=== PATIENT | female | born 1970 | race Caucasian/White ===

== ENCOUNTER 2018-04-11 12:01 | Inpatient (IN) ==
[2018-04-11 13:11] LABS: BILIRUBIN URINE NEGATIVE (NEGATIVE); BLOOD URINE TRACE (NEGATIVE); CLARITY CLEAR (CLEAR); COLOR YELLOW; GLUCOSE URINE NEGATIVE (NEGATIVE); KETONE URINE NEGATIVE (NEGATIVE); LEUKOCYTES URINE NEGATIVE (NEGATIVE); NITRITE URINE NEGATIVE (NEGATIVE); PROTEIN URINE 1+(30 mg/dL) mg/dL (NEGATIVE); SP GRAVITY URINE 1.005; UROBILINOGEN URINE NORMAL
--- NOTE | 2018-04-11 13:20 | Diag Imaging Result Doc PS360 ---
EXAM: CT HEAD W/O CONTRAST 04/11/2018 HISTORY: head injury, hallucinations TECHNIQUE: This exam was performed using automated exposure control, adjustment of mA or kV according to patient size, and/or use of iterative reconstruction technique. COMMENT: There is no evidence of mass effect, bleed, or abnormal extra-axial fluid collection. There are air-fluid levels in both maxillary sinuses. This was not the case at the time the previous study of 06/01/2017. The calvarium is intact. There is no evidence of acute bony abnormality. IMPRESSION: Bilateral maxillary sinusitis. No evidence of acute intracranial disease. Electronically signed by Marques Padron 04/11/2018 1:17 PM
[2018-04-11 13:33] LABS: UR AMPHETAMINES QUAL PRESUMPTIVE POSITIVE (NONE DETECT); UR BARBITUATES QUAL NONE DETECTED (NONE DETECT); UR BENZODIAZEPIN QUAL PRESUMPTIVE POSITIVE (NONE DETECT); UR CANNABINOIDS QUAL NONE DETECTED (NONE DETECT); UR COCAINE QUAL NONE DETECTED (NONE DETECT); UR METHADONE QUAL NONE DETECTED (NONE DETECT); UR METHAMPHETAMINE QUAL NONE DETECTED (NONE DETECT); UR OPIATES QUAL PRESUMPTIVE POSITIVE (NONE DETECT); UR OXYCODONE QUAL NONE DETECTED (NONE DETECT); UR PCP QUAL NONE DETECTED (NONE DETECT); UR PROPOXYPHENE QUAL NONE DETECTED (NONE DETECT); UR TCA QUAL NONE DETECTED (NONE DETECT)
[2018-04-11 13:35] LABS: BASO# 0.01 X1000 (0.0-0.2); BASO% 0.1 % (0.0-0.8); EOS# 0.01 X1000 (0.0-0.7); EOS% 0.1 % (0.0-10.0); HEMATOCRIT 33.7 % (37.0-47.0); HEMOGLOBIN 12.5 g/dL (12.0-16.0); IMM GRAN# 0.06 X1000 (0.0-0.04); IMM GRAN% 0.5 % (0.0-0.5); LYMPH# 1.21 X1000 (1.2-3.4); LYMPH% 9.3 % (20.5-51.1); MCH 30.4 PG (27-31); MCHC 37.1 g/dL (33-37); MONO# 1.05 X1000 (0.11-0.59); MONO% 8.1 % (1.7-9.3); MPV 10.9 FL (7.4-10.4); NEUT# 10.65 X1000 (1.4-6.5); NEUT% 81.9 % (42.2-75.2); PLT 320 X1000 (130-400); RBC 4.11 XMIL (4.2-5.4); WBC 12.99 X1000 (4.8-10.8)
[2018-04-11 13:38] LABS: URINE EPITHELIAL CELLS >10 /HPF (<10); URINE RBC <10 /HPF (<10); URINE WBC <10 /HPF (<10); URINE YEAST PRESENT /HPF
[2018-04-11 13:39] LABS: URINE SOURCE CLEAN CATCH
[2018-04-11 13:45] LABS: ESTIMATED GFR > 60
[2018-04-11 13:53] LABS: AGAP 13; ALBUMIN 3.9 g/dL (3.5-5.0); ALKALINE PHOSPHATASE 143 U/L (32-104); BUN 8 mg/dL (8-22); CALCIUM 9.3 mg/dL (8.8-10.2); CHLORIDE 84 mmol/L (98-107); COSMO 240; CREATININE 0.7 mg/dL (0.5-0.9); GLUCOSE 121 mg/dL (70-104); GOT 21 U/L (10-30); GPT 12 U/L (10-36); POTASSIUM 3.9 mmol/L (3.5-5.1); SODIUM 119 mmol/L (136-145); TCO2 23 mmol/L (25-35); TOTAL PROTEIN 7.3 g/dL (6.3-8.3)
[2018-04-11] MEDS ORDERED: NS 1,000 ML IV ONE ×2 (14:10→15:27)
[2018-04-11 14:21] LABS: FREE T4 1.67 ng/dL (0.93-1.70); TSH 0.28 uIUmL (0.27-4.20)
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
[2018-04-11] MEDS ORDERED: ZOFRAN IV PRN (15:27)
[2018-04-11] MEDS ORDERED: TYLENOL PO PRN (15:27)
--- NOTE | 2018-04-11 16:28 | Diag Imaging Result Doc PS360 ---
EXAM: CHEST-PORTABLE - 04/11/2018 HISTORY: chest pain TECHNIQUE: Portable chest COMPARISON: 06/01/2017 FINDINGS: Allowing for the AP projection, heart size appears within normal limits. Inspiration is somewhat shallow. There is mild curvilinear scarring at the right upper lobe which appears stable. There is slight prominence of interstitial markings but these may be exaggerated by the shallow inspiration. There is no dense consolidation, pleural effusion, or pneumothorax identified. IMPRESSION: Somewhat shallow inspiration. Nonspecific slight prominence of interstitial markings. Electronically signed by Sander Velazco 04/11/2018 4:26 PM
[2018-04-11] MEDS ORDERED: ZOFRAN ODT PO PRN (16:45)
[2018-04-11] MEDS ORDERED: NORCO-10 PO SCH (17:00)
[2018-04-11] MEDS ORDERED: XANAX PO SCH (17:00)
[2018-04-11] MEDS ORDERED: NUBAIN IV PRN (18:20)
[2018-04-11 20:04] LABS: AGAP 13; BUN 7 mg/dL (8-22); CALCIUM 8.7 mg/dL (8.8-10.2); CHLORIDE 86 mmol/L (98-107); COSMO 242; CREATININE 0.7 mg/dL (0.5-0.9); ESTIMATED GFR > 60; GLUCOSE 101 mg/dL (70-104); POTASSIUM 3.2 mmol/L (3.5-5.1); SODIUM 121 mmol/L (136-145); TCO2 23 mmol/L (25-35)
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
[2018-04-11] MEDS ORDERED: VALIUM PO SCH (21:00)
[2018-04-11] MEDS: NEURONTIN PO SCH (22:42)
[2018-04-11] MEDS: VALIUM PO SCH (22:42)
[2018-04-12 03:00] LABS: AGAP 13; BUN 7 mg/dL (8-22); CALCIUM 8.7 mg/dL (8.8-10.2); CHLORIDE 90 mmol/L (98-107); COSMO 248; CREATININE 0.7 mg/dL (0.5-0.9); ESTIMATED GFR > 60; GLUCOSE 112 mg/dL (70-104); POTASSIUM 3.7 mmol/L (3.5-5.1); SODIUM 124 mmol/L (136-145); TCO2 21 mmol/L (25-35)
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
[2018-04-12 06:47] LABS: BASO# 0.01 X1000 (0.0-0.2); BASO% 0.1 % (0.0-0.8); EOS# 0.04 X1000 (0.0-0.7); EOS% 0.4 % (0.0-10.0); HEMATOCRIT 29.6 % (37.0-47.0); HEMOGLOBIN 10.4 g/dL (12.0-16.0); IMM GRAN# 0.03 X1000 (0.0-0.04); IMM GRAN% 0.3 % (0.0-0.5); LYMPH% 18.5 % (20.5-51.1); MCH 29.5 PG (27-31); MCHC 35.1 g/dL (33-37); MCV 84.1 FL (81-99); MONO# 1.02 X1000 (0.11-0.59); MONO% 11.1 % (1.7-9.3); MPV 10.3 FL (7.4-10.4); NEUT# 6.37 X1000 (1.4-6.5); NEUT% 69.6 % (42.2-75.2); PLT 283 X1000 (130-400); RBC 3.52 XMIL (4.2-5.4); RDW 11.2 % (11.5-14.5); WBC 9.17 X1000 (4.8-10.8)
[2018-04-12 06:59] LABS: AGAP 10; BUN 7 mg/dL (8-22); CALCIUM 8.7 mg/dL (8.8-10.2); CHLORIDE 94 mmol/L (98-107); COSMO 250; CREATININE 0.6 mg/dL (0.5-0.9); ESTIMATED GFR > 60; GLUCOSE 111 mg/dL (70-104); POTASSIUM 3.5 mmol/L (3.5-5.1); SODIUM 125 mmol/L (136-145); TCO2 22 mmol/L (25-35)
[2018-04-12] MEDS ORDERED: PROZAC PO SCH (09:00)
[2018-04-12] MEDS ORDERED: NS 1,000 ML IV SCH (10:00)
[2018-04-12] MEDS: MOBIC PO SCH (11:06)
[2018-04-12] MEDS: ESTRACE PO SCH (11:06)
[2018-04-12] MEDS: NEURONTIN PO SCH ×2 (11:06→20:24)
[2018-04-12] MEDS: KLOR-CON PO SCH (11:06)
--- NOTE | 2018-04-12 11:49 | PROGRESS NOTE ---
DATE: 04/12/2018 SUBJECTIVE: This patient is completely alert and oriented x3. Family members at the bedside. Her sodium increased from 119 to 125. I will continue with the IV fluids. Her urine specific gravity was around 1.005. Also, her urine toxicology showed opiates, amphetamine, and benzodiazepine, but she denies any drug abuse. OBJECTIVE: Vital Signs: Temperature 98 degrees, pulse 80, respiratory rate 20 , blood pressure 144/94, oxygen saturation 98% on room air. HEENT: Head is normocephalic, no trauma. PERRLA. Neck: Supple. No JVD. No masses. Central trachea. Chest: Clear to auscultation. No wheezing. No rales. Abdomen: Soft, nontender, nondistended. No hepatosplenomegaly. Extremities: No edema. No clubbing. No cyanosis. Neurological: The patient is alert and oriented x3. No focal deficits. LABORATORY DATA: WBC 9.1, hemoglobin 10.4, hematocrit 29.6, platelets 283. Sodium 125 potassium 3.5, chloride 94, bicarbonate 22, BUN 7, creatinine 0.6, glucose 111, calcium 8.7. ASSESSMENT AND PLAN: 1. Symptomatic hyponatremia, her mental status has been improving, as per the mother she looks better. Continue with intravenous fluids, but I will probably stop it. I will monitor this again today at noon and then at 6:30 p.m. We will monitor this closely. This is not the first episode of hyponatremia. Actually, she has been admitted before for the same issue. Apparently, also this patient has been drinking only Mountain Dew and not drinking anything else or eating properly, also she has been on hydrochlorothiazide. 2. Hypertension. Continue to monitor. Also, her furosemide and her hydrochlorothiazide have been stopped. Probably also we will hold the Prozac because this also can cause hyponatremia. 3. Hallucination, likely secondary to hyponatremia. 4. Disposition. We will continue to monitor the blood sodium closely. Once this is better, she can be discharged with a strict followup by her primary care doctor and probably nephrology department. cc: Rad Gtz MD MTDD
[2018-04-12 13:01] LABS: AGAP 11; BUN 10 mg/dL (8-22); CALCIUM 8.5 mg/dL (8.8-10.2); CHLORIDE 93 mmol/L (98-107); COSMO 251; CREATININE 0.7 mg/dL (0.5-0.9); ESTIMATED GFR > 60; GLUCOSE 107 mg/dL (70-104); POTASSIUM 3.8 mmol/L (3.5-5.1); SODIUM 125 mmol/L (136-145); TCO2 21 mmol/L (25-35)
[2018-04-12 18:52] LABS: AGAP 10; BUN 10 mg/dL (8-22); CALCIUM 8.5 mg/dL (8.8-10.2); CHLORIDE 95 mmol/L (98-107); COSMO 251; CREATININE 0.7 mg/dL (0.5-0.9); ESTIMATED GFR > 60; GLUCOSE 102 mg/dL (70-104); POTASSIUM 3.8 mmol/L (3.5-5.1); SODIUM 125 mmol/L (136-145); TCO2 21 mmol/L (25-35)
[2018-04-12] MEDS: VALIUM PO SCH (20:24)
[2018-04-13 06:30] LABS: AGAP 12; BUN 10 mg/dL (8-22); CALCIUM 8.7 mg/dL (8.8-10.2); CHLORIDE 102 mmol/L (98-107); COSMO 267; CREATININE 0.7 mg/dL (0.5-0.9); ESTIMATED GFR > 60; GLUCOSE 91 mg/dL (70-104); POTASSIUM 3.7 mmol/L (3.5-5.1); SODIUM 134 mmol/L (136-145); TCO2 21 mmol/L (25-35)
[2018-04-13] MEDS ORDERED: PROZAC PO SCH (09:00)
--- NOTE | 2018-04-13 09:22 | Diag Imaging Result Doc PS360 ---
EXAM: CT HEAD W/O CONTRAST - 04/13/2018 HISTORY: encephalopathy TECHNIQUE: CT head without contrast COMPARISON: 04/11/2018 FINDINGS: There is no evidence of intracranial hemorrhage, mass effect, midline shift, or hydrocephalus. There is no evidence of infarct, although acute infarcts may not be immediately visible. There is a small amount of fluid noted in the bilateral maxillary sinuses. There are mucous retention cysts noted in right maxillary sinus. IMPRESSION: No visible acute intracranial abnormality. There is some paranasal sinus disease noted at the maxillary sinuses. This exam was performed using automated exposure control, adjustment of mA or kV according to patient size, and/or use of iterative reconstruction technique. Electronically signed by Sander Velazco 04/13/2018 9:20 AM
[2018-04-13 10:04] LABS: AGAP 11; BUN 9 mg/dL (8-22); CALCIUM 9.1 mg/dL (8.8-10.2); CHLORIDE 101 mmol/L (98-107); COSMO 268; CREATININE 0.7 mg/dL (0.5-0.9); ESTIMATED GFR > 60; GLUCOSE 117 mg/dL (70-104); POTASSIUM 3.6 mmol/L (3.5-5.1); SODIUM 134 mmol/L (136-145); TCO2 22 mmol/L (25-35)
--- NOTE | 2018-04-13 10:13 | PROGRESS NOTE ---
DATE: 04/13/2018 SUBJECTIVE: Today, she is oriented x3; but, compared with yesterday, she looks a little bit slow. Family members at the bedside, and it looks like she is not fully awake, but she is answering all my questions properly but slow. She is following commands as well. The blood sugar increased from 125 to 134 around 11 hours. She was admitted 2 days ago with severe hyponatremia at 1:19 and is being gradually going up. Initially, she was admitted with 119 like I said, and today it is 134. But she is still having some mental status changes. I am not quite sure if this is because of the hyponatremia or is because of her home medications. We will continue with the diazepam which has been started recently by her doctor. She used to be on Xanax which has been stopped by her doctor and also here and also apparently her doctor has recently stopped her [place] 10. Apparently, she has been more than 1 week without this medication because she ran out of this medication before even getting her refill time. I will consult Neurology to evaluate this patient. 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 Even though the blood sodium is better, she is still having problems I am not quite sure if this has been corrected too fast which I do, because it has been gradually in the past 48 hours do believe also she needs to follow with Nephrology Department as an outpatient since she has been hyponatremic. She has been having problems with hyponatremia since at least 2013. OBJECTIVE: Vital Signs: Temperature 97.6, pulse 78, respiratory rate 20, blood pressure 160/90. Oxygen saturation 100% on room air. HEENT: Head. Normocephalic. No trauma. PERRLA. Neck: Supple. No JVD. No masses. Central trachea. Chest: Clear to auscultation. No wheezing. No rales. Abdomen: Soft, nontender, nondistended. No hepatosplenomegaly. Extremities: No edema. No clubbing. No cyanosis. Neurological: This patient is alert but somnolent. Her answers are slow. She is oriented x3 though. I do not see any focal deficits. LABORATORY: Sodium 134, potassium 3.7, chloride 102, bicarbonate 21. BUN 10, creatinine 0.7, glucose 91. Calcium 8.7. ASSESSMENT AND PLAN: Asymptomatic hyponatremia. Upon admission, her urine sodium was 116 and the urine osmolarity 412, but the specific gravity in the urine was 1005. She received some IV fluids, and the blood sodium increased slowly. She was more alert yesterday but not fully recovered. But, today, she seems to be oriented but still answering my questions really slow but appropriate. She is following commands. She is able to recognize family members at the bedside. I do not see any focal deficits. IMPRESSION: 1. Metabolic encephalopathy. Probably, this is a combination of multiple issues like hyponatremia and medications. Urine toxicology showed opiates, amphetamine, and benzodiazepine. I am not quite sure she is positive for amphetamines though. Recently, I believe last Monday she was evaluated by her primary doctor which did some changes with her medications including stopping her Xanax and put this patient on diazepam. Also, I think they stopped the pain medication, [place]. We already stopped the hydrochlorothiazide because that can cause hyponatremia. Yesterday, I went ahead, and I stopped her Prozac because that medication can cause SIADH and also hyponatremia. I will wait for Neurology Department's and Nephrology Department's recommendations. 2. Hypertension. Continue to monitor. The hydrochlorothiazide has been stopped. Her BUN and creatinine are stable, so I will put her back on her irbesartan and I will monitor. 3. Hallucination, likely a combination of medications and hyponatremia. She is no longer hallucinating. cc: Rad Gtz MD
[2018-04-13] MEDS: ESTRACE PO SCH (10:14)
[2018-04-13] MEDS: KLOR-CON PO SCH (10:14)
[2018-04-13] MEDS: NEURONTIN PO SCH ×2 (10:14→21:21)
[2018-04-13] MEDS: MOBIC PO SCH (10:15)
[2018-04-13] MEDS: AVAPRO PO SCH (10:15)
[2018-04-13 13:25] LABS: AGAP 9; BUN 12 mg/dL (8-22); CALCIUM 8.2 mg/dL (8.8-10.2); CHLORIDE 104 mmol/L (98-107); COSMO 265; CREATININE 0.8 mg/dL (0.5-0.9); ESTIMATED GFR > 60; GLUCOSE 115 mg/dL (70-104); POTASSIUM 3.8 mmol/L (3.5-5.1); SODIUM 132 mmol/L (136-145); TCO2 19 mmol/L (25-35)
[2018-04-13 16:45] LABS: AGAP 8; BUN 14 mg/dL (8-22); CALCIUM 8.5 mg/dL (8.8-10.2); CHLORIDE 100 mmol/L (98-107); COSMO 262; CREATININE 0.8 mg/dL (0.5-0.9); ESTIMATED GFR > 60; GLUCOSE 113 mg/dL (70-104); POTASSIUM 4.3 mmol/L (3.5-5.1); SODIUM 130 mmol/L (136-145); TCO2 22 mmol/L (25-35)
--- NOTE | 2018-04-13 19:32 | CONSULTATION ---
DATE OF CONSULTATION: 04/13/2018 Ms. Darling is 48 years old and she had some recent delusions with hallucination. History from patient and her attentive mother and from review of hospital records is that she has been taking hydrocodone and alprazolam chronically. She has past history of misuse with these medicines. It looks like she filled 30 day supply 03/21/2018 and on approximately 04/05/2018 ( 14 to 15 days later) she had run out of both of these. She began to have some hallucinations and delusions. For example, she thought her was "outside calling me" which was aggravating but not threatening, by her report. She thought she saw some children or heard some children and went to check on them. She understands now that these experiences were not real. She had a single diazepam tablet a few days ago. She has had benzodiazepine provided in the hospital and has not had any further hallucination. She reports no prior similar problems. She has never had diagnosed stroke, definite seizure, serious head injury, other neurologic event. She reports question of seizure in the past evaluated with workup. She has had some limb jerking movements in sleep and she has had sleep study in the past. On presentation here sodium was 119. That has been partially corrected to 134. Other lab work was not remarkable. Noncontrast CT of the head was unremarkable. Urine drug screen was positive for opiates, amphetamine and benzodiazepine. Prior drug screens were positive for opiates and benzodiazepine but negative for amphetamine. On exam Ms. Darling is awake, alert, attentive. She seems appropriate now. Speech is not dysarthric. Language function is intact on bedside testing. Recent and remote memory are good. Head and neck are unremarkable. There is no meningismus. She has full visual fiore tested by confrontational finger counting. Extraocular movements are full. Facial motility is symmetric. Gag is intact. Tongue is midline. She can hear. Shoulder shrug is good bilaterally. Strength is normal in the arms and legs. Proprioception is good at the great toe MTP joint bilaterally. She has good symmetric sensation on gross testing over the limbs. I did not test her gait. IMPRESSION: Transient encephalopathy associated with hallucination and delusions. Features are typical of benzodiazepine withdrawal. We discussed opiate withdrawal symptoms which may have been contributing but generally would not be associated with this type of altered mental state. I encouraged her to be careful with her medicines. We discussed potential for seizure with benzodiazepine withdrawal. If she would like to have followup in [place] to discuss the limb movements in sleep, I will be glad to see her for that. Alternatively, she might follow up with her sleep doctor. No other suggestion from Neurology. Thanks for asking us to see Ms. Darling. cc: MD YAMEL Jhaveri III
[2018-04-13] MEDS ORDERED: VALIUM PO SCH (21:00)
[2018-04-13 21:03] LABS: AGAP 9; BUN 16 mg/dL (8-22); CHLORIDE 102 mmol/L (98-107); COSMO 264; CREATININE 0.7 mg/dL (0.5-0.9); ESTIMATED GFR > 60; GLUCOSE 99 mg/dL (70-104); SODIUM 131 mmol/L (136-145); TCO2 21 mmol/L (25-35)
[2018-04-14 02:32] LABS: AGAP 11; BUN 13 mg/dL (8-22); CALCIUM 8.4 mg/dL (8.8-10.2); CHLORIDE 102 mmol/L (98-107); COSMO 268; CREATININE 0.6 mg/dL (0.5-0.9); ESTIMATED GFR > 60; GLUCOSE 97 mg/dL (70-104); SODIUM 134 mmol/L (136-145); TCO2 21 mmol/L (25-35)
[2018-04-14 06:42] LABS: BASO# 0.03 X1000 (0.0-0.2); BASO% 0.4 % (0.0-0.8); EOS# 0.14 X1000 (0.0-0.7); EOS% 1.8 % (0.0-10.0); HEMATOCRIT 40.1 % (37.0-47.0); HEMOGLOBIN 13.8 g/dL (12.0-16.0); IMM GRAN# 0.02 X1000 (0.0-0.04); IMM GRAN% 0.3 % (0.0-0.5); LYMPH# 1.95 X1000 (1.2-3.4); LYMPH% 25.6 % (20.5-51.1); MCH 29.7 PG (27-31); MCHC 34.4 g/dL (33-37); MCV 86.4 FL (81-99); MONO# 0.61 X1000 (0.11-0.59); MPV 10.2 FL (7.4-10.4); NEUT# 4.86 X1000 (1.4-6.5); NEUT% 63.9 % (42.2-75.2); PLT 208 X1000 (130-400); RBC 4.64 XMIL (4.2-5.4); RDW 11.8 % (11.5-14.5); WBC 7.61 X1000 (4.8-10.8)
[2018-04-14 06:46] LABS: AGAP 11; BUN 11 mg/dL (8-22); CALCIUM 8.5 mg/dL (8.8-10.2); CHLORIDE 103 mmol/L (98-107); COSMO 270; CREATININE 0.6 mg/dL (0.5-0.9); ESTIMATED GFR > 60; GLUCOSE 101 mg/dL (70-104); POTASSIUM 4.2 mmol/L (3.5-5.1); SODIUM 135 mmol/L (136-145); TCO2 22 mmol/L (25-35)
[2018-04-14] MEDS: MOBIC PO SCH (10:02)
[2018-04-14] MEDS: NEURONTIN PO SCH (10:02)
[2018-04-14] MEDS: ESTRACE PO SCH (10:02)
[2018-04-14] MEDS: AVAPRO PO SCH (10:02)
[2018-04-14 13:32] VITALS: BP 149/89
--- NOTE | 2018-04-14 17:13 | NEPHROLOGY CONSULTATION ---
DATE: 04/14/2018 REASON FOR CONSULTATION: Hyponatremia. CONSULTING PHYSICIAN: Dr. Lino HISTORY OF PRESENT ILLNESS: Ms. Darling is a 48-year-old female about whom I have been corresponding with Dr. Lino over the last 48 hours in order to assist with her management. She was admitted to the hospital on 04/11/2018 with delirium and hallucinations. Her initial evaluation found her serum sodium 119. She was treated with normal saline and withdraw of her thiazide diuretic. Her sodium was 125 at 1815 on the evening of 04/12/2018 and then the next morning at 5:22, her sodium was 134. We discussed this by telephone and opted to discontinue all fluids and observe her sodium closely over the next 24 hours. Then during that time, her sodium stabilized in the mid 130s with highest measured sodium of 135 this morning at 0613. At the time of my exam, she is awake, alert, appropriate, does not admit to hallucinations at this time. No other new symptoms. No chills, fevers, abdominal pain, nausea, vomiting, etc. PAST MEDICAL HISTORY: Hypertension, fibromyalgia. HOME MEDICATIONS: Hydrocodone, diazepam, estradiol, fluoxetine, furosemide, gabapentin, meloxicam, ondansetron, potassium, alprazolam, irbesartan, hydrochlorothiazide. ALLERGIES: None. SOCIAL HISTORY: No alcohol or tobacco. FAMILY HISTORY: Otherwise noncontributory. REVIEW OF SYSTEMS: Otherwise noncontributory. PHYSICAL EXAMINATION: Blood pressure is 120/65, heart rate 74, respirations 16, afebrile. General: No acute distress. Skin is warm and dry. Conjunctivae are pink. Pupils are equal. Oropharynx is clear. Dentition normal. Neck is supple. Trachea is midline. No jugular venous distention. PMI nondisplaced. Regular rate and rhythm without murmurs, rubs, or gallops. Lungs have equal excursions, equal breath sounds. No crackles, wheezes, accessory muscle use, or retractions. Abdomen is soft and nontender. Bowel sounds present. No organomegaly, masses, or bruits. Extremities have no edema, clubbing, or cyanosis. IMPRESSION: Hyponatremia. Resolving. Her urine osmolality was inappropriately high; however, I believe this is related to medications. I agree with discontinuation of her thiazide diuretic and her SSRI. I would continue to withhold these medications at the time of discharge. No further intervention should be required regarding her hyponatremia. cc: Buddy Hall MD
--- NOTE | 2018-04-14 19:03 | DISCHARGE SUMMARY ---
ADMISSION DATE: 04/11/2018 DISCHARGE DATE: 04/14/2018 DISCHARGE DIAGNOSES: 1. Metabolic encephalopathy secondary to hyponatremia and possible benzodiazepine withdrawal. 2. Hypertension. HOSPITAL COURSE: Ms. Darling is a 48-year-old female who was admitted to the hospital after she was having altered mental status. She had some hallucinations and also had seizure activity here in the hospital as well. She was found to have significant hyponatremia and that was thought to be secondary to hydrochlorothiazide that she was taking which has been discontinued. Neurology consultation was obtained during this hospital admission. They recommended treatment of her hyponatremia and also thought that benzodiazepine withdrawal was an issue. No further recommendations were given by neurology. The patient's condition did get better with treatment of hyponatremia, and she was also given benzodiazepines while she was here in the hospital. She admitted to [place] that she took too many of her Xanax tablets, and therefore, she ran out before her next prescription which was the reason she went into having some withdrawal symptoms. Since the patient's condition has improved, she is going to be discharged home today. DISCHARGE MEDICATIONS: 1. Estradiol 1 mg orally once daily. 2. Gabapentin 800 mg orally twice daily. 3. Irbesartan 150 mg orally once daily. 4. Meloxicam 15 mg orally once daily. 5. Ondansetron 4 mg orally three times a day as needed for nausea. 6. Alprazolam 1 mg orally three times a day. 7. Vitamin B12 1000 mcg IM once a month. 8. Diazepam 5 mg orally once daily at bedtime. 9. Fluoxetine 60 mg orally once daily. 10.[place] 10 mg orally three times a day for chronic pain. FOLLOW UP: She will follow up with her PCP in approximately one week. CONDITION: Stable. DISPOSITION: Home. cc: MD Jesús Maki MD
== END 2018-04-14 13:10 | disposition home or self-care (01) | DRG 643 ==
LOC: P.ED 12:01 → SUATTDRO 15:11 → P.MEDSURG 15:11
PROVIDERS: ATTEND Internal Medicine
CPT/HCPCS: 70450; 71010; 71045; 72125; 80048; 80053; 80104; 80301; 80305; 80307; 80320; 81001; 82055; 82533; 82607; 83935; 84300; 84439; 84443; 84481; 85025; 96360; 99285; 99291; A9270; G0431; G0434; G0477; G0480; G6040; J7030